=== PATIENT | male | born 1960 | race Caucasian/White ===

== ENCOUNTER 2017-01-18 20:53 | Emergency (ER) | payer MEDICARE, MEDICAID ==
[~2017-01-18] VITALS: Ht 175.3 cm; Wt 90.7 kg
[~2017-01-18 20:53] MED LIST: ACTOS15 MG PO; B/P PILL; CHOL200035 PO; CLON0.5T3; CLON1TAB27 PO; CLON2TAB22 PO; CTLP20T PO; CYCL10TA9 PO; DIAZ-345 PO; DIVA250T2 PO; ETD300C PO; EZET1TAB44; FRSM20T; GBPN300C PO; HCT25T PO; HYDR-3583 PO; HYDR1TAB PO; KETO-22 PO; LEVO500T69 PO; LISI20TA PO; MELA10TA PO; MEPE50TA PO; MTF500T PO; NAPR-243 PO; NAPR500T PO; NAPR500T3 PO; NITR-65 PO; OMEP20CA6; PALI6TAB2; PANT20TA PO; PIOG1TAB2; POTASSIUM; PRM25T PO; TRAZADONE; ZIPR60CA6 PO
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
--- NOTE | 2017-01-18 21:39 | ED Psychosocial ---
General Chief Complaint: Psych/Social Disorder Stated Complaint: POSSIBLE PSYCH EVAL,POSSIBLE ELEVATED BP Nursing Triage Note: PT REPORTS HE DOESNT WANT TO LIVE IN HIS CAR ANYMORE. PT ALSO REPORTS R BIG TOE PAIN/SWELLING AND L BIG TOE PAIN. PT IS AGGRESSIVE UPON TRIAGE. ALCON MENDOZA SITTING WITH PT AT THIS TIME. Source: patient Exam Limitations: other (flight of ideas and poor historian. ) History of Present Illness Time seen by provider: 21:39 Initial Comments 56-year-old male patient presents to the emergency Department with reports of not wanting to live in his car anymore. Also reports he has swelling and pain of the left great toe. Patient initially was very aggressive and agitated upon triage, but has improved with hospital security at his bedside. Patient is very pleasant to this examiner. History difficult due to flight of ideas and poor historian. Patient reports breaking his toe several weeks ago when he was in [facility]. Reports it is continuing to have increased erythema, pain, and swelling. Now states the right great toe is having similar symptoms. Does not recall if he fractured the rt toe before. States he eats at the [employer]. Denies suicidal or homicidal ideation. Patient states he has not been taking any of his hypertension or diabetic medications for several months. Timing/Duration: constant, other (several weeks) Associated Symptoms: anxiety, impaired concentration, insomnia Allergies and Home Medications Allergies Coded Allergies: Codeine (Verified Allergy, Unknown, 01/11/06) Morphine and Related (Verified Allergy, Unknown, NOT ALLERGIC TO DEMEROL, HAS HAD VICODIN W/O PROBLEM, 01/11/06) Uncoded Allergies: OPIOID (Allergy, Unknown, 09/27/10) Home Medications Cholecalciferol (Vitamin D3) 2,000 Unit Capsule, 2,000 UNIT PO DAILY, (Reported) Citalopram Hydrobromide 20 Mg Tablet, 20 MG PO DAILY, (Reported) Cyclobenzaprine HCl 10 Mg Tablet, 10 MG PO Q8H, #15 Prescribed by: DAMIAN ROCHA on 10/13/16 0115 Cyclobenzaprine HCl 10 Mg Tablet, 10 MG PO Q8H PRN for SPASMS, #15 Prescribed by: DALILA CASTAÑEDA on 11/04/16 0633 Gabapentin 300 Mg Cap, 600 MG PO HS, (Reported) Hydrochlorothiazide 25 Mg Tablet, 25 MG PO DAILY, (Reported) Ketorolac Tromethamine 10 Mg Tablet, 10 MG PO QID, #20 Prescribed by: DUYEN GILES on 09/18/12 1659 Lisinopril 20 Mg Tablet, 40 MG PO daily, (Reported) Lisinopril 20 Mg Tablet, 20 MG PO DAILY, #30 Ref 0 Prescribed by: KHADAR BARRIOS on 01/18/17 2339 Melatonin 10 Mg Tab.mphase, 10 MG PO HS, (Reported) Naproxen 500 Mg Tablet, 500 MG PO BID, #20 Prescribed by: DAMIAN ROCHA on 10/13/16 0115 Naproxen 500 Mg Tablet, 500 MG PO BID PRN for PAIN, #30 Prescribed by: DALILA CASTAÑEDA on 11/04/16 0633 Pantoprazole Sodium 20 Mg Tablet.dr, 20 MG PO DAILY, (Reported) Sulfamethoxazole/Trimethoprim 1 Each Tablet, 1 EACH PO BID, #14 Ref 0 Prescribed by: KHADAR BARRIOS on 01/18/172338 Constitutional: No diaphoresis, No dizziness, No fever, No malaise, No weakness EENTM: no symptoms reported Respiratory: No cough, No phlegm, No short of breath Cardiovascular: No chest pain, No edema, No palpitations, No syncope Gastrointestinal: no symptoms reported Genitourinary: no symptoms reported Musculoskeletal: see HPI, joint pain (bilateral great toes), joint swelling ( bilateral great toes) Skin: change in color (erythema bilateral great toes) Psychiatric/Neurological: See HPI, Anxiety, Emotional Problems, Denies Headache , Denies Numbness, Denies Paresthesia, Denies Seizure, Denies Tingling, Denies Weakness All Other Systems Reviewed Negative Unless Noted: Yes (Negative excepted noted.) Past Ddaalpu-Plhxur-Ocfedf Hx Patient Social History Alcohol Use: Rarely Uses Recreational Drug Use: Yes (Marijuana 2 months ago, hx meth iv use) Smoking Status: Former Smoker Recent Foreign Travel: No Contact w/Someone Who Travel: No Recent Infectious Disease Expo: No Recent Hopitalizations: No Immunizations Up To Date Tetanus Booster (TDap): Unknown Seasonal Allergies Seasonal Allergies: No Surgeries HX Surgeries: Yes (UMBILICAL HERNIA REPAIR; RIGHT KNEE SCOPE; LEFT LEG SURGERY ; COLONOSCOPY) Surgeries: Abdominal, Orthopedic Respiratory Hx Respiratory Disorders: Yes Respiratory Disorders: Sleep Apnea Cardiovascular Hx Cardiac Disorders: No Neurological Hx Neurological Disorders: Yes Neurological Disorders: Neuropathy, Seizure Disorder Reproductive System Hx Reproductive Disorders: No Sexually Transmitted Disease: No Genitourinary Hx Genitourinary Disorders: Yes (BLADDER TUMORS) Gastrointestinal Hx Gastrointestinal Disorders: Yes (DIARRHEA/COLON POLYPS) Gastrointestinal Disorders: Polyps Musculoskeletal Hx Musculoskeletal Disorders: Yes Musculoskeletal Disorders: Arthritis Endocrine Hx Endocrine Disorders: Yes Endocrine Disorders: Diabetes, Non-Insulin dep HEENT HX ENT Disorders: No Cancer Hx Cancer: No Psychosocial Hx Psychiatric Problems: Yes ("DISASSOCIATIVE DISORDER" ) Behavioral Health Disorders: Sleep Difficulties, Anxiety, Bipolar, Personality Disorder, Schizophrenia, Depression Integumentary HX Skin/Integumentary Disorder: No Blood Transfusions Hx Blood Disorders: No Reviewed Nursing Assessment Reviewed/Agree w Nursing PMH: Yes Family Medical History Significant Family History: No Pertinent Family Hx Physical Exam Vital Signs Capillary Refill : Less Than 3 Seconds General Appearance: WD/WN, no apparent distress, other (disheveled, dirty.) HEENT: PERRL/EOMI, normal ENT inspection, TMs normal, pharynx normal Neck: supple, normal inspection Respiratory: lungs clear, normal breath sounds, no respiratory distress Cardiovascular: normal peripheral pulses, regular rate, rhythm, no murmur Peripheral Pulses: 2+ Dorsalis Pedis (R), 2+ Left Dors-Pedis (L), 2+ Radial Pulses (R), 2+ Radial Pulses (L) Gastrointestinal: normal bowel sounds, non tender, soft, No distended Extremities: no pedal edema, no calf tenderness, normal capillary refill, inflammation (bilateral 1st toes (L>R)), swelling (bilateral 1st toes (L>R)), other (bilateral great toe erythema, swelling, and tenderness.) Neurologic/Psychiatric: hypnotherapist II-XII nml as tested, no motor/sensory deficits, alert, oriented x 3, other (patient goes from agitated and aggressive behavior to pleasant and elevated mood.) Appearance/Memory: no memory impairment, denies illness, disheveled, impaired insight Behavior/Eye Contact: increased rate of speech, belligerent (initially belligerent.), compulsive, uncooperative (initially uncooperative and belligerent. Patient did calm down with security present in the exam room. Patient then became cooperative and pleasant.) Thoughts/Hallucinations: no apparent hallucination, flight of ideas, obsessive , paranoid Skin: normal color, warm/dry, other (erythema of the bilateral 1st toes) Progress/Results/Core Measures Results/Orders Lab Results My Orders Vital Signs/I&O Blood Pressure Mean: 118 Diagnostic Imaging Diagonstic Imaging: Xray Plain Films/CT/US/NM/MRI: other (bilateral foot x-ray) Comments nondisplaced healing fracture of the left great toe w/o osteomyelitis. Reviewed: Reviewed/Discussed (with Dr. Mota.) Departure Communication Progress Notes Patient seen and evaluated. I discussed with the patient that he does need to follow-up with a primary care physician to establish care and for restarting all diabetic and blood pressure medications. I've also discussed that he does need to restart his psychiatric medications and to follow-up with his behavioral health provider. Patient advised to return immediately to the emergency department, contact the crisis line, 911, or contact the Police Department if symptoms worsen or if he has any thoughts of suicidal or homicidal ideation. Patient voices understanding and agrees with the treatment plan. Patient case discussed with Dr. Mota, he agrees with the plan of care. Impression Impression: Primary Impression: Cellulitis of toe of right foot Additional Impressions: Cellulitis of toe of left foot Diabetes mellitus Qualified Codes: E13.8 - Other specified diabetes mellitus with unspecified complications Hypertension Qualified Codes: I10 - Essential (primary) hypertension Disposition: 01 HOME, SELF-CARE Condition: Improved Departure-Patient Inst. Decision time for Depature: 23:37 Referrals: [facility] (PCP/Family) Primary Care Physician Patient Instructions: Cellulitis (Skin Infection), Adult (DC) Add. Discharge Instructions: All discharge instructions reviewed with patient and/or family. Voiced understanding. Medications as directed. Elevate both feet on pillows. Follow- up with your family practitioner for recheck. Call tomorrow morning for appointment time. Follow-up with the [facility] behavioral health as instructed previously. Call for appointment time tomorrow morning. Return to the emergency department for worsened symptoms or any other concerns. Scripts Lisinopril (Lisinopril) 20 Mg Tablet 20 MG PO DAILY, #30 TAB 0 Refills Prov: KHADAR BARRIOS 01/18/17 Sulfamethoxazole/Trimethoprim (Sulfamethoxazole-Tmp Ds Tablet) 1 Each Tablet 1 EACH PO BID, #14 TAB 0 Refills Prov: KHADAR BARRIOS 01/18/17 KHADAR BARRIOS Jan 18, 2017 21:39
[2017-01-18 22:36] LABS: BILIRUBIN,URINE NEGATIVE (NEGATIVE); KETONES,URINE NEGATIVE (NEGATIVE); LEUKOCYTE ESTERASE ,URINE NEGATIVE (NEGATIVE); NITRITE,URINE NEGATIVE (NEGATIVE); PH,URINE 6 (5-9); PROTEIN,URINE NEGATIVE (NEGATIVE); UROBILINOGEN,URINE NORMAL (NORMAL)
[2017-01-18 22:43] LABS: SQUAMOUS EPITHELIAL CELL,UR RARE /HPF
[2017-01-18] MEDS ORDERED: SULF-222 PO (23:39)
[2017-01-18] MEDS ORDERED: LISI-552 PO (23:39)
[2017-01-18 23:54] VITALS: BP 142/79
--- NOTE | 2017-01-19 08:25 | Diagnostic Imaging Report ---
Bilateral feet. INDICATION: Foot pain. There are no prior studies available for comparison. 3 views of each foot were obtained. FINDINGS: There is a healing nondisplaced fracture of the midshaft of the proximal phalanx of the great toe of the left foot. The fracture line is barely visible on the oblique view, but there is healing callus formation present in this area. No other fracture or acute bony abnormality is identified. There are small calcaneal spurs bilaterally. The soft tissues are unremarkable. IMPRESSION: 1. There is a healing nondisplaced fracture of the proximal phalanx of the great toe of the left foot. There is no other acute bony abnormality identified. 2. There are small bilateral calcaneal spurs. Dictated by: Dictated on workstation # [id number]
== END 2017-01-18 23:54 | disposition home or self-care (01) ==
LOC: EDUNIT# 20:53 → ER 20:54
DX: L03.115 Cellulitis of right lower limb (principal); L03.032 Cellulitis of left toe; M77.31 Calcaneal spur, right foot; M77.32 Calcaneal spur, left foot; S92.414D Nondisplaced fracture of proximal phalanx of right great toe, subsequent encounter for fracture with routine healing; Z79.899 Other long term (current) drug therapy; E11.9 Type 2 diabetes mellitus without complications; Z87.891 Personal history of nicotine dependence; Z59.0 Homelessness
CPT/HCPCS: 80306; 81000; 82962; 99283

== ENCOUNTER 2018-01-04 08:02 | Outpatient (RCR) | payer MEDICARE, MEDICAID ==
[~2018-01-04 08:02] MED LIST changes: +LISI-552 PO; +NAPR-1071 PO; +NAPR-915 PO; -NAPR500T PO; -NAPR500T3 PO; +SULF-222 PO
== END 2018-02-05 09:16 | disposition home or self-care (01) ==
PROVIDERS: ATTEND Orthopaedic Surgery
DX: Z47.89 Encounter for other orthopedic aftercare (principal); M25.512 Pain in left shoulder